=== PATIENT | female | born 1955 | race Caucasian/White ===

== ENCOUNTER 2018-01-16 12:25 | Emergency (ER) | payer OTHER ==
[~2018-01-16] VITALS: Ht 165.1 cm; Wt 74.8 kg
[2018-01-16 12:25] VITALS: BP 148/75
[2018-01-16] MEDS ORDERED: MINERAL OIL 133 ML (PYXIS) 1 EA ENEMA RC ONE (13:00)
[2018-01-16] MEDS ORDERED: PEG 3350/NA SULF,BICARB,CL/KCL 4,000 ML BOTTLE PO ONE (13:00)
== END 2018-01-16 13:04 | disposition home or self-care (01) ==
LOC: ER 12:29
DX: K59.09 Other constipation (principal); R14.0 Abdominal distension (gaseous); I10 Essential (primary) hypertension; Z88.0 Allergy status to penicillin
CPT/HCPCS: A4606; Z7610

== ENCOUNTER 2020-04-05 01:13 | Emergency (ER) | payer OTHER ==
[~2020-04-05] VITALS: Ht 165.1 cm; Wt 74.8 kg
[2020-04-05 01:27] VITALS: BP 145/104
[2020-04-05] MEDS ORDERED: KETOROLAC TROMETHAMINE INJ 30 MG/ML VIAL ONE (01:49)
--- NOTE | 2020-04-05 01:53 | NUR ---
XRAY AT BEDSIDE
[2020-04-05] MEDS ORDERED: KETOROLAC TROMETHAMINE INJ 60 MG/2 ML VIAL IM ONE (02:00)
--- NOTE | 2020-04-05 03:13 | NUR ---
Patient discharged to home in stable condition. Written and verbal after care instructions given. Patient verbalizes understanding of instruction.
== END 2020-04-05 03:13 | disposition home or self-care (01) ==
LOC: ER 01:19
DX: S20.212A Contusion of left front wall of thorax, initial encounter (principal); S40.012A Contusion of left shoulder, initial encounter; I10 Essential (primary) hypertension; Z98.890 Other specified postprocedural states; Z88.0 Allergy status to penicillin; Y08.89XA Assault by other specified means, initial encounter; Y93.89 Activity, other specified; Y92.89 Other specified places as the place of occurrence of the external cause; Y99.8 Other external cause status
CPT/HCPCS: 71045; 73030; 73060; 96372; 99284; J1885

== ENCOUNTER 2022-06-09 17:14 | Emergency (ER) | payer MEDICARE, OTHER ==
[~2022-06-09] VITALS: Ht 165.1 cm; Wt 64.0 kg
--- NOTE | 2022-06-09 18:04 | NUR ---
BIBFRIEND FOR C/O GEN BODY WEAKNESS. NOTED SIGNIFICANT RIGHT ARM WEAKNESS THE PATIENT DOES NOT SPECIFY WHEN WAS LAST WELL KNOWN TIME. BROUGHT IN VIA WHEELCHAIR, PLACED ON BED, AAOX3, BREATHING EVEN AND UNLABORED SATURATING AT 97%RA
--- NOTE | 2022-06-09 18:04 | NUR ---
SEEN AND EXAMINED BY DR JUSTIN. BLOOD DRAWN AND SENT TO LAB
[2022-06-09 18:28] LABS: BASOPHILS % (AUTO) 0.5 % (0.0-2.0); EOSINOPHILS % (AUTO) 4.3 % (0.0-6.0); HEMATOCRIT 41 % (33-45); HEMOGLOBIN 13.5 g/dL (11.5-14.8); LYMPHOCYTES # (AUTO) 1.8 K/uL (0.8-4.8); LYMPHOCYTES % (AUTO) 19.7 % (20.0-44.0); MEAN CORPUSCULAR HGB CONC 33 g/dl (31.0-36.0); MEAN CORPUSCULAR VOLUME 88 fL (82-100); MONOCYTES # (AUTO) 0.7 K/uL (0.1-1.30); MONOCYTES % (AUTO) 8.2 % (2.0-12.0); NEUTROPHILS % (AUTO) 67.3 % (43.0-81.0); PLATELET COUNT (AUTO) 318 K/uL (150-450); RED BLOOD CELL COUNT(AUTO) 4.65 MIL/uL (4.0-5.2)
[2022-06-09 18:36] LABS: CALCIUM, SERUM 9.1 mg/dL (8.5-10.1); CREATININE 0.7 mg/dL (0.6-1.3); POTASSIUM 4.5 mmol/L (3.5-5.1)
--- NOTE | 2022-06-09 18:48 | NUR ---
URINE SAMPLE SENT TO LAB
--- NOTE | 2022-06-09 21:32 | NUR ---
IV removed. Catheter intact and site benign. Pressure and 4x4 applied to site. No bleeding noted.Patient discharged to home in stable condition. Written and verbal after care instructions given. Patient verbalizes understanding of instruction.
[2022-06-09 21:33] VITALS: BP 130/85
== END 2022-06-09 21:33 | disposition home or self-care (01) ==
LOC: ER 17:18
DX: R20.2 Paresthesia of skin (principal); F22 Delusional disorders; F19.90 Other psychoactive substance use, unspecified, uncomplicated; I10 Essential (primary) hypertension; Z88.0 Allergy status to penicillin; Z60.2 Problems related to living alone
CPT/HCPCS: 36415; 70450-TC; 71045-TC; 80048-TC; 82962-TC; 85025-TC; 85730-TC

== ENCOUNTER 2024-05-25 16:12 | Emergency (ER) | payer OTHER ==
[~2024-05-25] VITALS: Ht 162.6 cm; Wt 61.2 kg
[2024-05-25] MEDS ORDERED: KETOROLAC TROMETHAMINE INJ 30 MG/ML VIAL ONE (17:03)
[2024-05-25] MEDS ORDERED: BACLOFEN (10 MG) 10 MG TABLET ONE (17:03)
[2024-05-25] MEDS: PEG 3350/NA SULF,BICARB,CL/KCL 4,000 ML BOTTLE PO ONE (17:07)
[2024-05-25] MEDS: BACLOFEN (10 MG) 10 MG TABLET PO ONE (17:07)
[2024-05-25] MEDS: KETOROLAC TROMETHAMINE INJ 30 MG/ML VIAL IM ONE (17:08)
[2024-05-25] MEDS ORDERED: NITR100C6 PO (18:43)
[2024-05-25 19:35] VITALS: BP 120/78; TEMP 98.2; O2SAT 98
== END 2024-05-25 19:35 | disposition home or self-care (01) ==
LOC: ER 16:12
DX: N39.0 Urinary tract infection, site not specified (principal); K59.00 Constipation, unspecified; I10 Essential (primary) hypertension; Z79.899 Other long term (current) drug therapy; Z60.2 Problems related to living alone; Z88.0 Allergy status to penicillin
CPT/HCPCS: 99283; 96372; J1885